=== PATIENT | male | born 1975 | race Caucasian/White ===

== ENCOUNTER 2018-11-14 03:13 | Emergency (ER) | payer MEDICAID, SELFPAY ==
[2018-11-14 03:14] VITALS: BP 151/91; PULSE 80; RESP 16; TEMP 36.8; O2SAT 96; BMI 36.5
--- NOTE | 2018-11-14 03:16 | ED.RN ---
RN CALLED FOR EKG, NO OLD EKGS IN MUSE
--- NOTE | 2018-11-14 03:31 | RAD_ITS ---
HISTORY: CHEST PAIN LAST NIGHT EXAM:XR Chest 2 Views COMPARISON: None FINDINGS: EKG leads in place. Normal heart size. No vascular congestion, pleural effusion, or acute pulmonary infiltration. A pneumothorax. The bony thorax appears intact. RAD/Chest PA and Lateral IMPRESSION: No acute cardiopulmonary disease. at 0405 Reported and signed by: Ivan Bear MD Electronically Signed: Ivan Bear, at 4:04 EDT Tel , Service support ,
--- NOTE | 2018-11-14 03:31 | EKG12_ITS ---
Test Reason : CP Blood Pressure : / mmHG Vent. Rate : 082 BPM Atrial Rate : 082 BPM P-R Int : 128 ms QRS Dur : 098 ms QT Int : 382 ms P-R-T Axes : 030 045 025 degrees QTc Int : 446 ms Normal sinus rhythm with sinus arrhythmia Normal ECG Confirmed by YAS KEITA, LIDIA ([id number]), book or script editor NAZANIN LINDSEY ([id number]) on 11/17/2018 1:21:08 PM Referred By: ROSELIA Confirmed By:LIDIA SORENSON MD
[2018-11-14 03:47] LABS: Absolute Lymphocyte Count 3.31 X10^3/ul (0.83-4.51); Absolute Neutrophil Count 5.5 X10^3/uL (2.0-7.7); Basophil# 0.02 X10^3/uL; Basophil% 0.2 % (0-1); Eosinophil# 0.09 X10^3/uL; Hematocrit 44.1 % (40-54); Hemoglobin 15.7 g/dl (13.0-16.5); Lymphocyte # 3.31 X10^3/ul (4.0); Mean Corp Hgb Conc 35.6 g/gl (32-36); Mean Corpuscular Hgb 30.9 pg (27.0-32.0); Mean Corpuscular Volume 86.8 fL (80-94); Mean Platelet Vol. 10.7 fl (6.2-12.0); Monocyte# 0.53 X10^3/uL; Monocyte% 5.6 % (0-10); Platelet Count 262 K/mm3 (150-450); RBC Distribution Width CV 12.2 % (11.6-14.6); RBC Distribution Width SD 38.4 fl (35.1-43.9); Red Blood Count 5.08 M/mm3 (4.6-6.2); White Blood Count 9.5 K/mm3 (4.4-11.0)
[2018-11-14 03:49] LABS: POSITIVE COUNT NO; POSITIVE DIFFERENTIAL NO; POSITIVE MORPHOLOGY NO
[2018-11-14 03:59] LABS: Anion Gap 7 (5-15); BUN 15 mg/dL (7-18); BUN/Creat Ratio 12.9 RATIO (10-20); Calcium,Total 9.2 mg/dL (8.5-10.1); Chloride 107 mmol/L (98-107); Creatinine, Serum 1.16 mg/dL (0.70-1.30); EST Glomerular Filtration Rate 74 mL/min (>60); Est Glom Filt Rate - Afr Amer 89 mL/min (>60); Estimated Creatinine Clearance 89.26 ml/min; Glucose 117 mg/dL (74-106); Potassium 3.6 mmol/L (3.5-5.1); Sodium Level 142 mmol/L (136-145)
--- NOTE | 2018-11-14 04:17 | ED.DCSUM_ITS ---
- ER Visit Summary Date of Service: 11/14/18 Chief Complaint: Chest pain History of Present Illness: The patient is a 43 M who presents with chest pain. This began 6 hours ago. He describes it as burning. It is worse with palpation of his chest. He states he feels a little bit short of breath. His symptoms are worse with laying flat. He has been having similar intermittent symptoms for about 3 weeks. He states his pain is worse at night. It can last up to an hour. He also reports recent illness with chills congestion rhinorrhea sore throat cough. No fevers. No vomiting. Physical Examination: Afebrile blood pressure 151/91 vitals otherwise normal No distress Moist mucous membranes Heart regular rate and rhythm Lungs clear Patient does have anterior chest wall tenderness along the costochondral margins Abdomen soft Extremities nontender without edema symmetric radial pulses which are easily palpable Test Results: EKG shows normal sinus rhythm at a rate of 82. CBC BMP troponin unremarkable. Chest x-ray shows no acute disease. Emergency Department Course and Treatment: Patient has had a recent URI-like illness with reproducible chest pain. This is most consistent on exam with costochondritis. However given his age I did pursue laboratory evaluation which was normal. This does not appear to be cardiac in nature. Patient was given a prescription for naproxen and discharged home. Treatment Plan: [] Disposition: Discharge Impression: Chest pain Costochondritis This note was generated with [id number] dictation software. It may contain incorrect words, spelling, and punctuation that were not noted in review of the chart prior to signing ED Disposition - Plan for ED Patient: Referrals: Thomas Claros DO [Primary Care Provider] -
--- NOTE | 2018-11-14 04:17 | ED.DEP ---
ED Disposition - Plan for ED Patient: Instructions: ED Chest Pain Costochondritis Prescriptions: Naproxen [Naprosyn] 500 mg PO BID #20 tab Referrals: Thomas Claros DO [Primary Care Provider] -
[2018-11-14 04:51] VITALS: BP 134/88; PULSE 63; RESP 14; O2SAT 99
== END 2018-11-14 04:52 | disposition home or self-care (01) ==
PROVIDERS: Emergency Provider Emergency Medicine; Family Provider Family Medicine; PCP Family Medicine
DX: M94.0 Chondrocostal junction syndrome [Tietze] (principal); Z72.0 Tobacco use
CPT/HCPCS: 71046; 80048; 84484; 85025; 93005; 99284; A4216

== ENCOUNTER → 2023-09-08 | Outpatient (CLI) | payer OTHER, SELFPAY ==
--- NOTE | 2023-09-08 09:14 | EKG12_ITS ---
Test Reason : PRE OP Blood Pressure : / mmHG Vent. Rate : 065 BPM Atrial Rate : 065 BPM P-R Int : 148 ms QRS Dur : 090 ms QT Int : 388 ms P-R-T Axes : 069 051 038 degrees QTc Int : 403 ms Normal sinus rhythm Normal ECG Confirmed by Kevin Ndiaye ([id number]), assistant production editor NAZANIN LINDSEY ([id number]) on 09/08/2023 1:50:30 PM Referred By: Ana Morataya Confirmed By:Kevin Ndiaye
--- OUTSIDE RECORDS SUMMARY | 2023-09-08 09:49 | XMS RPT_ITS | CCD ---
Author Name Unknown Address [address] [place] [address] Organization [facility] Care Team Providers Care Management Expert Name Role Phone RICHAR GELLER Attending Unavailable RICHAR GELLER Primary Care Unavailable RCIHAR GELLER Admitting Unavailable Results Test Name Value Interpretation Reference Range Facil ity Encounters Encounter Date Encounter Type Care Provider Facility Start: 08-02-2021 End: 08-02-2021 ambulatory RICHAR GELLER [facility] Start: 04-29-2018 End: 04-30-2018 Patient encounter [facility] Summary Purpose Family History No Family History Records FoundNo Family History Records Found Advance Directives No Advanced Directives Records FoundNo Advanced Directives Records Found Additional Source Comments (unrecognized sect ion and content) No Status Records FoundNo Status Records Found INFORMATION SOURCE (unrecogn ized section and content) DATE CREATED AUTHOR AUTHOR'S ORGANIZ ATION 08/04/2021 [facility] FOR RECORDS PERTAINING TO PATIENTS WHO ARE OR HAVE BEEN ENROLLED IN A CHEMICAL DEPENDENCY/SUBSTANCEABUSE PROGRAM, SOME INFORMATION MAY BE OMITTED. This clinical summary was aggregated from multiple sources. Caution should be exercised in using it in the provision of clinical care. This summary normalizes information from multiple sources, and as a consequence, information in this document may materially change the coding, format and clinical context of patient data. In addition, data may be omitted in some cases. CLINICAL DECISIONS SHOULD BE BASED ON THE PRIMARY CLINICAL RECORDS. [employer] provides no warranty or guarantee of the accuracy or completeness of information in this document.
[2023-09-08 09:51] LABS: Absolute Lymphocyte Count 3.25 X10^3/uL (0.83-4.51); Absolute Neutrophil Count 3.4 X10^3/uL (2.0-7.7); Basophil# 0.05 X10^3/uL; Basophil% 0.7 % (0-1); Eosinophil# 0.11 X10^3/uL; Eosinophils% 1.5 % (0-5); Hematocrit 45.4 % (40-54); Hemoglobin 15.4 g/dL (13.0-16.5); Lymphocyte # 3.25 X10^3/ul (0.83-4.51); Lymphocyte % 43.7 % (19-41); Mean Corp Hgb Conc 33.9 g/dL (32-36); Mean Corpuscular Hgb 30.1 pg (27.0-32.0); Mean Corpuscular Volume 88.8 fL (80-94); Mean Platelet Vol. 10.5 fl (6.2-12.0); Monocyte# 0.62 X10^3/uL; Monocyte% 8.3 % (0-10); NRBC Flagged by Analyzer 0 % (0-5); Neutrophil # 3.39 X10^3/uL (2.7-7.7); Neutrophil % 45.5 % (47-70); Platelet Count 254 K/mm3 (150-450); RBC Distribution Width SD 39.1 fl (35.1-43.9); Red Blood Count 5.11 M/mm3 (4.6-6.2); White Blood Count 7.4 K/mm3 (4.4-11.0)
[2023-09-08 10:15] LABS: Anion Gap 5 (5-15); BUN 12 mg/dL (7-18); BUN/Creat Ratio 10.8 RATIO (10-20); Calcium,Total 9.4 mg/dL (8.5-10.1); Chloride 110 mmol/L (98-107); Creatinine, Serum 1.11 mg/dL (0.70-1.30); EST Glomerular Filtration Rate 76 mL/min (>60); Est Glom Filt Rate - Afr Amer 92 mL/min (>60); Glucose 98 mg/dL (74-106); Sodium Level 140 mmol/L (136-145)
== END | disposition home or self-care (01) ==
PROVIDERS: PCP Family Medicine; Referring Provider Physician Assistant Surgical; Visit Provider Physician Assistant Surgical
DX: Z01.810 Encounter for preprocedural cardiovascular examination (principal)
CPT/HCPCS: 36415; 80048; 85025; 93005